=== PATIENT | male | born 1975 | race Caucasian/White ===

== ENCOUNTER → 2021-02-08 14:21 | Outpatient (BNVA) | payer MEDICARE, MEDICAID, SELFPAY | PROVIDERS: Family Provider Nurse Practitioner Family; Visit Provider Registered Nurse | DX: Z79.899 Other long term (current) drug therapy (principal) | CPT/HCPCS: 36415; 80053; 80061; 82306; 83036; 84443 ==

== ENCOUNTER → 2022-09-02 13:08 | Outpatient (BNVA) | payer OTHER, MEDICAID, SELFPAY | PROVIDERS: Family Provider Nurse Practitioner Family; Visit Provider Registered Nurse | DX: F33.2 Major depressive disorder, recurrent severe without psychotic features (principal); Z79.899 Other long term (current) drug therapy | CPT/HCPCS: 80053; 80061; 82306; 82607; 83036; 84443; 85025 ==

== ENCOUNTER → 2023-04-04 16:41 | Outpatient (BNVA) | payer MEDICARE, MEDICAID, SELFPAY | PROVIDERS: Family Provider Nurse Practitioner Family; Visit Provider Registered Nurse | DX: Z79.899 Other long term (current) drug therapy (principal); F41.9 Anxiety disorder, unspecified; F33.2 Major depressive disorder, recurrent severe without psychotic features | CPT/HCPCS: 80053; 80061; 82306; 82607; 82728; 83036; 83540; 84443; 85025 ==